=== PATIENT | male | born 1965 | race Two or more races ===

== ENCOUNTER 2022-08-15 20:28 | Inpatient (IN) | payer MEDICAID, OTHER ==
[~2022-08-15] VITALS: Ht 190.5 cm; Wt 253.0 kg
[2022-08-15] MEDS ORDERED: MORPHINE SULFATE INJ 2 MG/ml SYRG IV ONE (20:45)
[2022-08-15] MEDS ORDERED: METOCLOPRAMIDE HCL 5MG/ml INJ 2ml VIAL IV ONE (20:45)
[2022-08-15 22:12] LABS: Basophils # (auto) 0 10 ^3/uL (0-0.2); Eosinophils # (auto) 0 10 ^3/uL (0-0.8); Hematocrit 32.6 % (41.0-53.0); Lymphocytes # (auto) 0.5 10 ^3/uL (0.4-5.4)
[2022-08-15 22:15] LABS: Basophils % (auto) 0.4 % (0.0-2.0); Hemoglobin 11.1 g/dL (13.5-17.5); Mean Corpuscular Hemoglobin 37.7 pg (28.0-32.0); Monocytes # (auto) 0.8 10 ^3/uL (0-1.3); Monocytes % (auto) 11.5 % (0.0-12.0); Neutrophils # (auto) 5.8 10 ^3/uL (1.6-8.6); Neutrophils % (auto) 81.1 % (37.0-80.0); Nucleated Red Blood Cells % 0.2 %; Red Blood Cells 2.94 10^6/uL (4.5-5.90); Red Cell Distribution Width 17.6 % (11.8-14.3); White Blood Cell 7.2 10^3/uL (4.4-10.8)
[2022-08-15] MEDS ORDERED: PANTOPRAZOLE 40mg/50ML NS AE 50 ML IV ONE (22:30)
[2022-08-15] MEDS ORDERED: PANTOPRAZOLE 80 MG in SODIUM CHL 0.9% 100 ML IV ONE (22:30)
[2022-08-15] MEDS ORDERED: OCTREOTIDE ACETATE 100 MCG in SODIUM CHL 0.9% 50 ML IV ONE (22:30)
[2022-08-15 22:32] LABS: Albumin 2.8 g/dL (3.4-5.0); BUN/Creatinine Ratio 30.9 (10.0-20.0); Calcium 8.7 mg/dL (8.5-10.1); Magnesium 1.7 mg/dL (1.6-2.6); Potassium 3.8 mmol/L (3.5-5.1)
[2022-08-15 22:35] LABS: Bilirubin, Total 2.1 mg/dL (0.2-1.0); Total Protein 7.1 g/dL (6.4-8.2)
[2022-08-15 22:39] LABS: INR 1.49 (0.9-1.15); Partial Thromboplastin Time 27.6 sec (24.6-33.4)
[2022-08-15] MEDS ORDERED: ONDANSETRON HCL 4 MG/2 ML VIAL IV PRN (23:30)
[2022-08-16] MEDS ORDERED: PANTOPRAZOLE 40 MG/10 ML VIAL INJ IV ONE (00:01)
[2022-08-16] MEDS ORDERED: OCTREOTIDE ACETATE 100 MCG/ML VL ONE (00:01)
[2022-08-16] MEDS ORDERED: OCTREOTIDE ACETATE 500 MCG/ML VL ONE (00:01)
[2022-08-16] MEDS: OCTREOTIDE ACETATE 500 MCG in SODIUM CHL 0.9% 99 ML IV SCH ×3 (00:30→19:06)
[2022-08-16 04:02] LABS: Urine Bacteria FEW /hpf (None Seen); Urine Blood Negative /uL (Negative); Urine Hyaline Cast FEW /lpf (0 - 2); Urine Specific Gravity 1.024 (1.001-1.035); Urine WBC <1 /hpf (0 - 3)
[2022-08-16 08:22] LABS: Basophils # (auto) 0 10 ^3/uL (0-0.2); Eosinophils # (auto) 0 10 ^3/uL (0-0.8); Hemoglobin 10.3 g/dL (13.5-17.5); Lymphocytes # (auto) 0.7 10 ^3/uL (0.4-5.4); Nucleated Red Blood Cells % 0.1 %; White Blood Cell 5.6 10^3/uL (4.4-10.8)
[2022-08-16 08:23] LABS: Basophils % (auto) 0.6 % (0.0-2.0); Eosinophils % (auto) 0.1 % (0.0-7.0); Hematocrit 30.3 % (41.0-53.0); Lymphocytes % (auto) 12.9 % (10.0-50.0); Mean Corpuscular Hemoglobin 37.9 pg (28.0-32.0); Mean Corpuscular Hgb Conc. 34.1 g/dL (32.0-36.0); Neutrophils # (auto) 3.9 10 ^3/uL (1.6-8.6); Neutrophils % (auto) 68.4 % (37.0-80.0); Red Blood Cells 2.73 10^6/uL (4.5-5.90); Red Cell Distribution Width 17.6 % (11.8-14.3)
[2022-08-16 09:00] LABS: Albumin 2.8 g/dL (3.4-5.0); Calcium 8.8 mg/dL (8.5-10.1); Potassium 3.9 mmol/L (3.5-5.1)
[2022-08-16 09:07] LABS: BUN/Creatinine Ratio 22.9 (10.0-20.0); Bilirubin, Total 2.6 mg/dL (0.2-1.0); Total Protein 6.8 g/dL (6.4-8.2)
[2022-08-16] MEDS: MORPHINE SULFATE 4 MG/ML SYR/VIAL IV PRN ×2 (10:07→22:34)
[2022-08-16 11:29] LABS: Alcohol, Urine < 3.0 mg/dL (0-10); Amphetamine Screen, Urine NEGATIVE (NEGATIVE); Barbiturate Scree,Urine NEGATIVE (NEGATIVE); Benzodiazephine Screen, Urine NEGATIVE (NEGATIVE); Cannabinoid Screen, Urine NEGATIVE (NEGATIVE); Cocaine Screen, Urine NEGATIVE (NEGATIVE); Opiate Scree,Urine NEGATIVE (NEGATIVE); Phencyclidine Screen, Urine NEGATIVE (NEGATIVE)
[2022-08-16] MEDS ORDERED: IOHEXOL 350 MG/ML 100ML IJ ONE (16:06)
[2022-08-16] MEDS: OXYCODONE W/ ACETAMINOPHEN 5/325MG TABLET PO PRN ×2 (16:55→23:34)
[2022-08-16] MEDS ORDERED: hydrALAZINE HCL 20 MG/ML VL IV PRN (18:45)
[2022-08-16] MEDS ORDERED: LISINOPRIL 20 MG TAB PO ONE (18:45)
[2022-08-16 23:40] VITALS: BP 150/72
[2022-08-16 23:41] VITALS: BP 150/72
[2022-08-17] MEDS ORDERED: LOSA25TA15 PO (00:13)
[2022-08-17] MEDS ORDERED: ALL100T PO (00:13)
[2022-08-17] MEDS ORDERED: PERCOT PO (00:13)
[2022-08-17] MEDS ORDERED: FURO1TAB33 PO (00:13)
[2022-08-17] MEDS ORDERED: OXY10CRT PO (00:13)
[2022-08-17 05:00] VITALS: BP 128/67
[2022-08-17] MEDS: OCTREOTIDE ACETATE 500 MCG in SODIUM CHL 0.9% 99 ML IV SCH ×2 (05:26→14:30)
[2022-08-17] MEDS: OXYCODONE W/ ACETAMINOPHEN 5/325MG TABLET PO PRN ×3 (05:29→18:26)
[2022-08-17 08:00] VITALS: BP 127/73
[2022-08-17 08:35] LABS: White Blood Cell 3.8 10^3/uL (4.4-10.8)
[2022-08-17 08:37] LABS: Hemoglobin 9.9 g/dL (13.5-17.5); Mean Corpuscular Hemoglobin 38.2 pg (28.0-32.0); Mean Corpuscular Volume 112.4 fL (80.0-100.0); Red Blood Cells 2.58 10^6/uL (4.5-5.90); Red Cell Distribution Width 18.6 % (11.8-14.3)
[2022-08-17 08:41] LABS: Basophils % (manual) 0 (0.0-2.0); Blast Cells 0; Eosinophils % (manual) 0 (0-7); Metamyelocytes % 0; Myelocytes % 0; Promyelocytes % 0; Reactive Lymphocytes 0
[2022-08-17 08:51] LABS: Band Neutrophils % (manual) 2; Lymphocytes % (manual) 26 (10.0-50.0); Monocytes % (manual) 10 (0-12)
[2022-08-17 08:52] LABS: Albumin 2.8 g/dL (3.4-5.0); Magnesium 2.2 mg/dL (1.6-2.6); Potassium 4.1 mmol/L (3.5-5.1)
[2022-08-17 08:56] LABS: Bilirubin, Total 2.1 mg/dL (0.2-1.0)
[2022-08-17] MEDS ORDERED: LISINOPRIL 20 MG TAB PO SCH (10:00)
[2022-08-17] MEDS ORDERED: PANTOPRAZOLE 40 MG/10 ML VIAL INJ IV SCH (10:00)
[2022-08-17] MEDS: LISINOPRIL 20 MG TAB PO SCH (10:18)
[2022-08-17 12:00] VITALS: BP 143/85
[2022-08-17 16:00] VITALS: BP 129/66
[2022-08-17] MEDS: MORPHINE SULFATE 4 MG/ML SYR/VIAL IV PRN (21:03)
[2022-08-17] MEDS: PANTOPRAZOLE 40 MG/10 ML VIAL INJ IV SCH (21:04)
[2022-08-17 22:00] VITALS: BP 142/88
[2022-08-18] MEDS: OCTREOTIDE ACETATE 500 MCG in SODIUM CHL 0.9% 99 ML IV SCH ×3 (01:06→21:51)
[2022-08-18] MEDS: OXYCODONE W/ ACETAMINOPHEN 5/325MG TABLET PO PRN ×4 (01:06→21:50)
[2022-08-18 05:00] VITALS: BP 113/65
[2022-08-18] MEDS: MORPHINE SULFATE 4 MG/ML SYR/VIAL IV PRN (06:36)
[2022-08-18] MEDS ORDERED: SODIUM CHLORIDE LOCK 10 ML ONE (08:45)
[2022-08-18] MEDS ORDERED: MIDAZOLAM HCL 5 MG/ML-1ML VIAL ONE (08:46)
[2022-08-18] MEDS ORDERED: diphenhdrAMINE HCL 50 MG/1 ML VL ONE (08:46)
[2022-08-18] MEDS ORDERED: fentaNYL CITRATE 100 MCG/2 ML VL ONE (08:46)
[2022-08-18 09:00] VITALS: BP 132/60
[2022-08-18] MEDS: PANTOPRAZOLE 40 MG/10 ML VIAL INJ IV SCH ×2 (09:46→21:51)
[2022-08-18] MEDS: LISINOPRIL 20 MG TAB PO SCH (09:47)
[2022-08-18 13:20] VITALS: BP 144/75
[2022-08-18 17:00] VITALS: BP 155/77
[2022-08-18 22:00] VITALS: BP 144/69
[2022-08-19] MEDS: MORPHINE SULFATE 4 MG/ML SYR/VIAL IV PRN ×2 (01:25→10:23)
[2022-08-19 05:00] VITALS: BP 140/68
[2022-08-19] MEDS: OXYCODONE W/ ACETAMINOPHEN 5/325MG TABLET PO PRN ×2 (05:45→13:03)
[2022-08-19] MEDS: OCTREOTIDE ACETATE 500 MCG in SODIUM CHL 0.9% 99 ML IV SCH ×3 (05:46→10:21)
[2022-08-19 09:00] VITALS: BP 156/80
[2022-08-19] MEDS: PANTOPRAZOLE 40 MG/10 ML VIAL INJ IV SCH (10:18)
[2022-08-19] MEDS: LISINOPRIL 20 MG TAB PO SCH (10:19)
[2022-08-19] MEDS ORDERED: LISI20TA56 PO (12:25)
[2022-08-19] MEDS ORDERED: PANT40TA2 PO (12:25)
[2022-08-19] MEDS ORDERED: SUCR1TAB22 OR (12:25)
[2022-08-19 13:00] VITALS: BP 140/45
[2022-08-19 13:46] VITALS: BP 140/68
== END 2022-08-19 14:50 | disposition home or self-care (01) | DRG 253 ==
LOC: EDBD 20:28 → ER 20:31 → TELE 23:30 → TELE-CENTR 08-16 21:32
PROVIDERS: ADMIT Internal Medicine; ATTEND Internal Medicine
DX: K92.2 Gastrointestinal hemorrhage, unspecified (principal); D61.818 Other pancytopenia; R18.8 Other ascites; I11.9 Hypertensive heart disease without heart failure; K74.60 Unspecified cirrhosis of liver; E66.9 Obesity, unspecified; R77.8 Other specified abnormalities of plasma proteins; R79.89 Other specified abnormal findings of blood chemistry; R74.8 Abnormal levels of other serum enzymes; Z88.0 Allergy status to penicillin
CPT/HCPCS: 36415; 71250; 71275; 74176; 80053; 80307; 81001; 82270; 82962; 83735; 83880; 84484; 85007; 85025; 85027; 85379; 85610; 85730; 86850; 86900; 86901; 93005; 93306; 93970; 96365; 96366; 96368; 96375; 96376; C9113; G0378; J2250; J2405